=== PATIENT | male | born 1980 | race Native Hawaiian/Other Pacific Islander ===

== ENCOUNTER 2022-03-13 13:39 | Outpatient (CLI) | payer OTHER ==
--- NOTE | 2022-03-13 14:23 | XRAY Report ---
PROCEDURE: Chest 2 View X-Ray INDICATIONS: BRONCHITIS TECHNIQUE: 2 views of the chest were acquired. COMPARISON: None. FINDINGS: Clear lungs. No pleural effusion or pneumothorax. Normal cardiomediastinal contour. No central vascul ar congestion. Osseous structures and overlying soft tissues appear normal. IMPRESSION: No acute cardiopulmonary disease. Reviewed by: Yu Frazier MD on 03/13/2022 1:22 PM [facility] Approved by: Yu Frazier MD on 03/13/2022 1:22 PM DALE Station ID: [id number]
== END 2022-03-13 13:40 | disposition home or self-care (01) ==
LOC: DI 13:39
PROVIDERS: ATTEND Family Medicine
DX: J20.9 Acute bronchitis, unspecified (principal)